=== PATIENT | female | born 1975 | race African-American/Black ===

== ENCOUNTER 2016-10-05 17:08 | Emergency (ER) | payer OTHER ==
[2016-10-05 17:15] VITALS: BP 140/89; PULSE 87; TEMP 97.9; BMI 32.5
[2016-10-05] MEDS ORDERED: IBUPROFEN 600 MG TABLET (FP) PO ONE ×2 (18:09→18:10)
--- NOTE | 2016-10-05 18:13 | PDOC ---
History of Present Illness - General Chief Complaint: Injury Stated Complaint: FINGER INJURY Time Seen by Provider: 10/05/16 17:59 - History of Present Illness Initial Comments: 10/05/16 18:15 She is a 41-year-old female who presents to the emergency department complaining of right second finger pain. She states that she closed her finger in a wood door at home. She came to be evaluated because she saw that her finger was bleeding. She was able to control the bleeding with direct pressure. Patient states she is able to bend her finger with no pain. Denies weakness of the hand numbness, or tingling, or injury to the nailbed. Pt. states last tetnus shot was within the last 10 years. Past History - Past Medical History Allergies/Adverse Reactions: Allergies Allergy/AdvReac Type Severity Reaction Status Date / Time fluticasone propionate Allergy Rash Verified 02/25/16 12:40 [From Flonase] Home Medications: Ambulatory Orders Benzocaine/Resorcin/Aloe/E,A,D [Vagisil Cream] 28 gm TP ASDIR #1 cream..g. 02/24 Fluconazole 150 mg PO ONCE #1 tablet 02/25/16 Ciprofloxacin [Cipro -] 500 mg PO Q12H #6 tablet 02/27/16 Anemia: No Asthma: No Cancer: No Cardiac Disorders: No CVA: No COPD: No CHF: No Dementia: No Diabetes: No GI Disorders: No Disorders: No HTN: No Hypercholesterolemia: No Liver Disease: Yes Seizures: No Thyroid Disease: No Other medical history: glaucoma - Surgical History Abdominal Surgery: No Appendectomy: No Cardiac Surgery: No Cholecystectomy: No Lung Surgery: No Neurologic Surgery: No Orthopedic Surgery: No - Psycho/Social/Smoking Cessation Hx Anxiety: No Suicidal Ideation: No Smoking Status: No Smoking History: Never smoked Have you smoked in the past 12 months: No Number of Cigarettes Smoked Daily: 0 Information on smoking cessation initiated: No Hx Alcohol Use: No Drug/Substance Use Hx: No Substance Use Type: None Hx Substance Use Treatment: No *Physical Exam - Vital Signs Last Vital Signs Temp Pulse Resp BP Pulse Ox 97.9 F 87 18 140/89 99 10/05/16 17:11 10/05/16 17:11 10/05/16 17:11 10/05/16 17:11 10/05/16 17:11 - Physical Exam Comments: 10/05/16 18:25 GENERAL: The patient is awake, alert, and fully oriented, in no acute distress. HEAD: Normal with no signs of trauma. EYES: Pupils equal, round and reactive to light, extraocular movements intact, sclera anicteric, conjunctiva clear. EXTREMITIES: R second finger with 1cm linear superficial abrasion at the lateral PIP. Normal range of motion of the R 2nd finger with no TTP at the DIP, PIP. Normal range of motion, no edema. NEUROLOGICAL:Normal speech, normal gait. PSYCH: Normal mood, normal affect. SKIN: Warm, Dry, normal turgor, no rashes or lesions noted. Medical Decision Making - Medical Decision Making 10/05/16 18:31 Patient is a 41-year-old female presenting with a right second finger abrasion. No tenderness to palpation of the right second finger. Low suspicion for fracture. The abrasion does not need sutures at this time. Bacitracin and Band- Aid placed on finger. We will discharge home. *DC/Admit/Observation/Transfer Diagnosis at time of Disposition: Finger abrasion Qualifiers: Encounter type: initial encounter Qualified Code(s): S60.419A - Abrasion of unspecified finger, initial encounter - Discharge Dispostion Disposition: HOME Condition at time of disposition: Stable Admit: No - Referrals Referrals: Selam Vieyra MD [Primary Care Provider] - - Patient Instructions Additional Instructions: You have a small cut on your finger. There was nothing that needed to be stitched. Keep the finger clean, dry, and covered. Use antibiotic ointment on the finger. You may take ibuprofen for pain. Return to the ED if you have fevers, chills, or if you cannot move your finger.
== END 2016-10-05 18:24 | disposition home or self-care (01) ==
LOC: JERFT 17:08
DX: S60.410A Abrasion of right index finger, initial encounter (principal); W23.0XXA Caught, crushed, jammed, or pinched between moving objects, initial encounter; Y93.89 Activity, other specified; Y92.038 Other place in apartment as the place of occurrence of the external cause; Y99.8 Other external cause status
CPT/HCPCS: 99281-25